=== PATIENT | male | born 1980 | race Caucasian/White ===

== ENCOUNTER 2016-06-01 13:14 | Observation (INO) | payer MEDICARE, OTHER ==
[2016-06-01 13:18] VITALS: BMI 21.5
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
--- NOTE | 2016-06-01 14:02 | PDOC ---
Attending Attestation - Resident Resident Name: Nimisha Pimentel - ED Attending Attestation I have performed the following: I have examined & evaluated the patient, The case was reviewed & discussed with the resident, I agree w/resident's findings & plan, Exceptions are as noted - HPI HPI: 06/01/16 14:18 The patient is a 35-year-old male with a significant past medical history of traumatic brain injury, seizure disorder, who has taken 900 mg of Dilantin a day for the past 4 days, rather than the prescribed dose of 300 mg per day. He is complaining of "dizziness" as well as difficulty walking, weakness and somnolence. He denies palpitation. - Physicial Exam PE: 06/01/16 14:19 Well appearing Mildly tachycardic - Medical Decision Making 06/01/16 14:19 He is well appearing and in no acute distress Will obtain labs and EKG 06/01/16 16:14 Dilantin level is pending Other labs back Will observe Clinical impression: Dilantin toxicity Case discussed in detail with admitting provider including history, physical exam and ancillary studies. Admitting physician has assumed care for the patient, will follow all pending diagnostics and will complete the evaluation and treatment. A portion of this note was documented by scribe services under my direction. I have reviewed the details of the note, within reason, and agree with the documentation with the following case summary and management plan written by me.
[2016-06-01 14:53] LABS: BASOPHIL 0.6 % (0-2.0); MCHC 33.3 g/dl (32.0-35.9); MEAN CELL VOLUME 84.1 fl (80-96); MEAN PLT VOLUME 9.2 fl (7.5-11.1); NEUTROPHILS 69.1 % (42.8-82.8); PLATELET COUNT 206 K/MM3 (134-434); RDW 13.4 % (11.9-15.9); WHITE BLOOD COUNT 7.4 K/mm3 (4.0-10.0)
[2016-06-01 15:21] LABS: ALBUMIN 4.1 g/dl (3.4-5.0); ALK PHOS 92 U/L (45-117); ANION GAP 9 (8-16); BILIRUBIN,TOTAL 0.3 mg/dL (0.2-1.0); CALCIUM 8.9 mg/dL (8.5-10.1); CO2 29 mmol/L (21-32); GLUCOSE,RANDOM 97 mg/dL (74-106); SGOT/AST 15 U/L (15-37); TOT PROT 7.1 g/dl (6.4-8.2)
[2016-06-01 15:33] LABS: SGPT/ALT 23 U/L (12-78)
[2016-06-01 16:03] LABS: URINE MARIJUANA THC NEGATIVE ng/ml (CUTOFF=50)
[2016-06-01] MEDS ORDERED: SODIUM CHLORIDE 1,000 ML IV STA (17:38)
[2016-06-01] MEDS ORDERED: PNEUMOC 13-VAL CONJ-DIP CRM/PF 0.5 ML DISP.SYRIN IM ONE (17:57)
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
[2016-06-01] MEDS ORDERED: PNEUMOCOCCAL 23 VACCINE 0.5 ML VIAL IM ONE (18:15)
--- NOTE | 2016-06-01 18:26 | PN ---
Teaching Attending Note Name of Resident: Sara Robles ATTENDING PHYSICIAN STATEMENT I saw and evaluated the patient. I reviewed the resident's note and discussed the case with the resident. I agree with the resident's findings and plan as documented. SUBJECTIVE: OBJECTIVE: Vital Signs Period Temp Pulse Resp BP Sys/Adam Pulse Ox Last 24 Hr 98 F-98.3 F 90-101 18-20 125-136/74-82 98-100 ASSESSMENT AND PLAN:
[2016-06-01] MEDS ORDERED: ALPRAZolam 2 MG TABLET PO PRN (18:40)
[2016-06-01] MEDS ORDERED: SODIUM CHLORIDE 1,000 ML IV SCH (18:45)
[2016-06-01] MEDS ORDERED: INFLUENZA VACCINE 45 MCG/0.5 ML (MDV 16-17) IM ONE (19:00)
[2016-06-01] MEDS: levETIRAcetam 500 MG TABLET (FP) PO SCH (21:32)
[2016-06-02] MEDS ORDERED: ACETAMINOPHEN 325 MG TABLET (FP) PO ONE (06:21)
[2016-06-02 08:29] LABS: ALBUMIN 3.5 g/dl (3.4-5.0); ANION GAP 8 (8-16); CALCIUM 8.4 mg/dL (8.5-10.1); CO2 28 mmol/L (21-32); GLUCOSE,RANDOM 79 mg/dL (74-106)
[2016-06-02 08:34] LABS: ALK PHOS 72 U/L (45-117); BILIRUBIN,TOTAL 0.4 mg/dL (0.2-1.0); CREATININE 0.8 mg/dL (0.7-1.3); SGOT/AST 10 U/L (15-37); SGPT/ALT 17 U/L (12-78); TOT PROT 5.8 g/dl (6.4-8.2)
[2016-06-02] MEDS: levETIRAcetam 500 MG TABLET (FP) PO SCH (09:07)
[2016-06-02 14:20] VITALS: BP 135/79; PULSE 83; TEMP 98
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
--- NOTE | 2016-06-02 18:31 | EKG ---
Test Reason : Blood Pressure : / mmHG Vent. Rate : 088 BPM Atrial Rate : 088 BPM P-R Int : 126 ms QRS Dur : 096 ms QT Int : 344 ms P-R-T Axes : 028 080 055 degrees QTc Int : 416 ms NORMAL SINUS RHYTHM NORMAL ECG WHEN COMPARED WITH ECG OF 13-JAN-2016 21:30, NO SIGNIFICANT CHANGE WAS FOUND Confirmed by DEBRA KENT MD ([id number]) on 06/02/2016 6:30:59 PM Referred By: Confirmed By:DEBRA KENT MD
== END 2016-06-02 18:31 | disposition home or self-care (01) ==
LOC: JER 13:14 → JERBED 16:23 → J4W 17:20
PROVIDERS: ADMIT Internal Medicine; ATTEND Internal Medicine
DX: T42.0X1A Poisoning by hydantoin derivatives, accidental (unintentional), initial encounter (principal); F43.10 Post-traumatic stress disorder, unspecified; F32.9 Major depressive disorder, single episode, unspecified; G40.909 Epilepsy, unspecified, not intractable, without status epilepticus; G43.909 Migraine, unspecified, not intractable, without status migrainosus; G25.81 Restless legs syndrome; F41.9 Anxiety disorder, unspecified; Z87.820 Personal history of traumatic brain injury; F17.210 Nicotine dependence, cigarettes, uncomplicated; R42 Dizziness and giddiness; Y92.89 Other specified places as the place of occurrence of the external cause
CPT/HCPCS: 36415; 80053; 80185; 80307; 85025; 90732; 93005; 93010; 99285-25; G0009; G0378; Q2037

== ENCOUNTER 2016-08-06 13:04 | Emergency (ER) | payer OTHER ==
[2016-08-06 13:18] VITALS: TEMP 97.5; BMI 21.5
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
[2016-08-06] MEDS ORDERED: levETIRAcetam 500 MG/5 ML INJECTION VIAL IVPB ONE ×2 (14:27→14:41)
[2016-08-06] MEDS ORDERED: HYDROmorphone HCL CARPU-JECT 1 MG/1 ML DISP.SYRIN IVPB ONE (14:27)
[2016-08-06] MEDS ORDERED: PHENYTOIN NA EXTENDED 100 MG CAPSULE (FP) PO ONE (14:29)
[2016-08-06] MEDS ORDERED: HYDROmorphone HCL CARPU-JECT 1 MG/1 ML DISP.SYRIN ONE (14:41)
[2016-08-06] MEDS ORDERED: PHENYTOIN NA EXTENDED 100 MG CAPSULE (FP) ONE (14:41)
[2016-08-06 15:05] LABS: BASOPHIL 0.5 % (0-2.0); EOSINOPHIL 0.7 % (0-4.5); MCH 28.3 pg (25.7-33.7); MCHC 33.9 g/dl (32.0-35.9); MEAN CELL VOLUME 83.5 fl (80-96); MEAN PLT VOLUME 9.3 fl (7.5-11.1); NEUTROPHILS 78.4 % (42.8-82.8); PLATELET COUNT 213 K/MM3 (134-434); RDW 13.6 % (11.9-15.9); WHITE BLOOD COUNT 12.6 K/mm3 (4.0-10.0)
[2016-08-06 15:30] LABS: ALBUMIN 3.9 g/dl (3.4-5.0); ALK PHOS 179 U/L (45-117); ANION GAP 11 (8-16); BILIRUBIN,TOTAL 0.5 mg/dL (0.2-1.0); CO2 25 mmol/L (21-32); COCKROFT - GAULT 110.24; CREATININE 0.9 mg/dL (0.7-1.3); GLUCOSE,RANDOM 100 mg/dL (74-106); SGOT/AST 48 U/L (15-37); SGPT/ALT 117 U/L (12-78); TOT PROT 7.2 g/dl (6.4-8.2)
[2016-08-06 20:19] VITALS: BP 118/54; PULSE 84
== END 2016-08-06 20:40 | disposition home or self-care (01) ==
LOC: JER 13:04
PROC: 3E033NZ Introduction of Analgesics, Hypnotics, Sedatives into Peripheral Vein, Percutaneous Approach (ICD-10-PCS; principal; 2016-08-06)
PROC: 3E033GC Introduction of Other Therapeutic Substance into Peripheral Vein, Percutaneous Approach (ICD-10-PCS; 2016-08-06)
DX: G40.409 Other generalized epilepsy and epileptic syndromes, not intractable, without status epilepticus (principal); R56.1 Post traumatic seizures; Z87.820 Personal history of traumatic brain injury; Z91.14 Patient's other noncompliance with medication regimen; G43.909 Migraine, unspecified, not intractable, without status migrainosus; R74.0 Nonspecific elevation of levels of transaminase and lactic acid dehydrogenase [LDH]
CPT/HCPCS: 36415; 70450-TC; 76705-TC; 80053; 80307; 85025; 99282-25

== ENCOUNTER 2018-01-01 22:20 | Emergency (ER) | payer OTHER ==
--- NOTE | 2018-01-01 22:31 | PDOC ---
History of Present Illness - General History Source: Patient Exam Limitations: No Limitations - History of Present Illness Initial Comments: 01/01/18 23:02 The patient is a 37 year old male with a significant PMH of epileptic seizures s /p traumatic head injury three years ago who presents to the emergency department with increased anxiety s/p questionable seizure this morning. Patient reports he was arguing with his this morning and later today lost consciousness for approximately an hour and a half. Patient states that when he woke up he had urinated on himself. Patient does not know if he seized during this time as the episode was unwitnessed. Patient notes he also had been unable to sleep all day and has had decreased appetite since the incident. Patient reports his last seizure was in October. Patient has been on stable dosing of lyrica, phenytoin, and vimpat for the past year and a half. Patient has taken all his medications today and reports taking them daily, as prescribed. The patient denies chest pain, shortness of breath, headache and dizziness. Denies fever, chills, nausea, vomit, diarrhea and constipation. Denies dysuria, frequency, urgency and hematuria. Allergies: NKA Past surgical history: None reported. Social history: No reported alcohol or cigarette use. Medical marijuana used. 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) - Suicide/Smoking/Psychosocial Hx Smoking History: Current every day smoker Have you smoked in the past 12 months: Yes Number of Cigarettes Smoked Daily: 20 'Breaking Loose' booklet given: 06/01/16 Hx Alcohol Use: No Drug/Substance Use Hx: No Substance Use Type: None Hx Substance Use Treatment: No <Kendrick Benavidez - Last Filed: 01/02/18 01:09> - Past Medical History Allergies/Adverse Reactions: Allergies Allergy/AdvReac Type Severity Reaction Status Date / Time ciprofloxacin [From Cipro] Allergy Verified 08/06/16 13:16 Home Medications: Ambulatory Orders Alprazolam [Xanax] 2 mg PO QID PRN 10/09/15 Methadone [Dolophine -] 10 mg PO QID 10/09/15 Oxycodone HCl 30 tab PO QID PRN 10/09/15 Phenytoin Na Extended [Dilantin -] 300 mg PO DAILY #30 cap 06/02/16 levETIRAcetam [Keppra -] 750 mg PO BID #30 tablet 06/02/16 clonazePAM [KlonoPIN] 1 mg PO PRN PRN 08/06/16 *Physical Exam - Vital Signs Last Vital Signs Temp Pulse Resp BP Pulse Ox 98.3 F 90 14 138/100 100 01/01/18 22:30 01/01/18 22:30 01/01/18 22:30 01/01/18 22:30 01/01/18 22:30 <Dee Dee Rodriguez - Last Filed: 01/01/18 23:01> *DC/Admit/Observation/Transfer <Dee Dee Rodriguez - Last Filed: 01/01/18 23:01> - Discharge Dispostion Decision to Admit order: No <Kendrick Benavidez - Last Filed: 01/02/18 01:09> Diagnosis at time of Disposition: Anxiety - Discharge Dispostion Disposition: HOME Condition at time of disposition: Improved - Patient Instructions Printed Discharge Instructions: DI for Anxiety -- Adult
[2018-01-01] MEDS ORDERED: LORazepam 1 MG TABLET PO ONE (22:55)
[2018-01-01 22:57] VITALS: BP 138/100; PULSE 90; TEMP 98.3; BMI 25.8
[2018-01-01] MEDS ORDERED: LORazepam 0.5 MG TABLET ONE (23:03)
== END 2018-01-02 01:11 | disposition home or self-care (01) ==
LOC: FER 22:20
DX: F41.9 Anxiety disorder, unspecified (principal); G40.909 Epilepsy, unspecified, not intractable, without status epilepticus; F17.210 Nicotine dependence, cigarettes, uncomplicated; I10 Essential (primary) hypertension
CPT/HCPCS: 99283-25

== ENCOUNTER 2018-01-23 13:37 | Emergency (ER) | payer OTHER ==
[2018-01-23 13:44] VITALS: BP 134/82; PULSE 83; TEMP 98.3; BMI 25.7
--- NOTE | 2018-01-23 13:56 | PDOC ---
History of Present Illness - General Chief Complaint: Pain, Acute Stated Complaint: LEFT WRIST PAIN Time Seen by Provider: 01/23/18 13:50 History Source: Patient Exam Limitations: No Limitations - History of Present Illness Initial Comments: 01/23/18 14:17 37y M hx of seizures presents with L wrist mass and L hand pain. Patient states that he's been having discomfort in his left hand and wrist after hitting a wall. Though she noted there was a bump on his wrist 2 days ago the wrist is not really painful there was no redness swelling, was no other injury noted. Denies numbness, tingling, weakness, fever, chills. 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) - Suicide/Smoking/Psychosocial Hx Smoking History: Current every day smoker Have you smoked in the past 12 months: Yes Number of Cigarettes Smoked Daily: 4 Information on smoking cessation initiated: Yes 'Breaking Loose' booklet given: 01/23/18 Hx Alcohol Use: No Drug/Substance Use Hx: Yes Substance Use Type: Marijuana Hx Substance Use Treatment: No Review of Systems - Review of Systems Able to Perform ROS?: Yes Comments:: 01/23/18 14:19 Constitutional - no reported Fever, Chills, Musculskelatal - +L wrist/hand pain no reported back pain, joint swelling skin - no reported bruising, erythema, rash neurological: no reported headache, numbness, focal weakness, tingling, ataxia, hematologic: no reported easy bruising, easy bleeding *Physical Exam - Vital Signs Last Vital Signs Temp Pulse Resp BP Pulse Ox 98.3 F 83 16 134/82 99 01/23/18 13:37 01/23/18 13:37 11/15/18 13:37 01/23/18 13:37 01/23/18 13:37 - Physical Exam Comments: 01/23/18 14:20 GENERAL: The patient is awake, alert, and fully oriented, Nontoxic - in no acute distress. EXTREMITIES: No focalalong the distal forearm, wrist, hand, fingers, no limitations in range of motion throughout the left upper extremity. There is a palpable mass/ cyst on the volar ulnar aspect of his wrist that is nontender, nonfluctuant. Dorsiflexion/extension of his wrist intact cloth covered helmet puller strength normal,. Patient intact SKIN: Warm, Dry, normal turgor, Medical Decision Making - Medical Decision Making 01/23/18 14:21 Suspect ganglion cyst on his wrist will obtain xray o fhis hand/wrist to r/o fx due to prior history of trauma no n/v complaints pt declines pain medications 01/23/18 15:34 xray neg for fx will dc with pmd fu return precautions were dsicussed I discussed the physical exam findings, ancillary test results and final diagnoses with the patient. I answered all of the patient's questions. The patient was satisfied with the care received and felt comfortable with the discharge plan and treatment plan. The patient will call their primary care physician within 24 hours to arrange follow-up and will return to the Emergency Department with any new, persistent or worsening symptoms. *DC/Admit/Observation/Transfer Diagnosis at time of Disposition: Ganglion cyst of volar aspect of left wrist - Discharge Dispostion Disposition: HOME Condition at time of disposition: Stable Decision to Admit order: No - Referrals Referrals: [facility] [Provider Group] Hasmukh Randall MD [Staff Physician] - - Patient Instructions Printed Discharge Instructions: DI Ganglion Cyst Additional Instructions: Return to the emergency department immediately with ANY new, persistent or worsening symptoms. You MUST call and follow up with your doctor in 4-5 days for further evaluation of your symptoms. Results were discussed with you. Please make sure your doctor reviews the results of your emergency evaluation. If you had any xrays during your visit, it was read preliminarily by myself, a Radiologist will review it and if there are any additional findings we will call you. - Post Discharge Activity
== END 2018-01-23 15:38 | disposition home or self-care (01) ==
LOC: FER 13:37
DX: M67.432 Ganglion, left wrist (principal); F17.210 Nicotine dependence, cigarettes, uncomplicated; Z87.442 Personal history of urinary calculi
CPT/HCPCS: 73130-TC-LR-FY; 99281-25

== ENCOUNTER 2018-04-18 14:42 | Emergency (ER) | payer OTHER ==
[2018-04-18] MEDS ORDERED: TETRACAINE 0.5% HCL 0.6ML DROPPER.BOTTLE OS ONE (14:55)
[2018-04-18] MEDS ORDERED: FLUORESCEIN NA 1 EA STRIP ONE (14:56)
[2018-04-18] MEDS ORDERED: TETRACAINE 0.5% OPHTH SOLN 2 ML BOTTLE ONE (14:56)
[2018-04-18] MEDS ORDERED: FLUORESCEIN NA 1 EA STRIP OS ONE (14:57)
[2018-04-18 15:04] VITALS: BP 138/90; PULSE 91; TEMP 98.1; BMI 25.1
--- NOTE | 2018-04-18 15:24 | PDOC ---
History of Present Illness - General Chief Complaint: Injury Stated Complaint: FACE/EYE PAIN Time Seen by Provider: 04/18/18 14:52 - History of Present Illness Initial Comments: 04/18/18 15:30 Mr. Dacosta is a 37 yo male w/ pmh of seizures who presents for evaluation of L eye pain. Patient reports daughter was jumping on the bed last night and accidentally sung a water bottle into his eye while playing. He reports he had 3 minutes of severe eye pain with following splitting headache and photophobia that has lasted until presentation. Also noticed yellow liquid coming from eye today. The patient denies chest pain, shortness of breath, headache and dizziness. Denies fever, chills, nausea, vomit, diarrhea and constipation. Denies dysuria, frequency, urgency and hematuria. 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 No weakness. HEAD, EYES, EARS, NOSE AND THROAT: +L eye pain as described. L blurry eye vision. No ear pain or discharge. No sore throat. CARDIOVASCULAR: No chest pain or shortness of breath RESPIRATORY: No cough, wheezing, or hemoptysis. GASTROINTESTINAL: No nausea, vomiting, diarrhea or constipation. GENITOURINARY: No dysuria, frequency, or change in urination. MUSCULOSKELETAL: No joint or muscle swelling or pain. No neck or back pain. SKIN: No rash NEUROLOGIC: No headache, vertigo, loss of consciousness, or change in strength/ sensation. ENDOCRINE: No increased thirst. No abnormal weight change HEMATOLOGIC/LYMPHATIC: No anemia, easy bleeding, or history of blood clots. ALLERGIC/IMMUNOLOGIC: No hives or skin allergy. *Physical Exam - Vital Signs Last Vital Signs Temp Pulse Resp BP Pulse Ox 98.1 F 91 H 16 138/90 98 04/18/18 14:43 04/18/18 14:43 04/18/18 14:43 04/18/18 14:43 04/18/18 14:43 - Physical Exam Comments: 04/18/18 15:40 GENERAL: Awake, alert, and fully oriented, in no acute distress HEAD: No signs of trauma, normocephalic, atraumatic EYES: +L eye conjunctivitis w/ corneal abbrasion midline noted under flourescein evaluation. PERRLA, EOMI, sclera anicteric ENT: Auricles normal inspection, hearing grossly normal, nares patent, oropharynx clear without exudates. Moist mucosa NECK: Normal ROM, supple, no lymphadenopathy, JVD, or masses LUNGS: No distress, speaks full sentences, clear to auscultation bilaterally HEART: Regular rate and rhythm, normal S1 and S2, no murmurs, rubs or gallops, peripheral pulses normal and equal bilaterally. ABDOMEN: Soft, nontender, normoactive bowel sounds. No guarding, no rebound. No masses EXTREMITIES: Normal inspection, Normal range of motion, no edema. No clubbing or cyanosis. NEUROLOGICAL: Cranial nerves II through XII grossly intact. Normal speech, normal gait, no focal sensorimotor deficits SKIN: Warm, Dry, normal turgor, no rashes or lesions noted. Moderate Sedation - Procedure Monitoring Vital Signs: Procedure Monitoring Vital Signs Temperature 98.1 F 04/18/18 14:43 Pulse Rate 91 H 04/18/18 14:43 Respiratory Rate 16 04/18/18 14:43 Blood Pressure 138/90 04/18/18 14:43 O2 Sat by Pulse Oximetry (%) 98 04/18/18 14:43 ED Treatment Course - Medications Given in the ED: ED Medications Discontinued Medications Generic Name Dose Route Start Last Admin Trade Name Freq PRN Reason Stop Dose Admin Fluorescein Sodium 1 ea 04/18/18 14:57 04/18/18 15:16 Fluorets - OS 04/18/18 14:58 1 ea ONCE ONE Administration Tetracaine HCl 1 drop 04/18/18 14:55 04/18/18 14:58 Tetravisc 0.5% Eye Drops - OS 04/18/18 14:56 1 drop ONCE ONE Administration Medical Decision Making - Medical Decision Making 04/18/18 15:40 Mr. Dacosta is a 37 yo male w/ pmh as described who presents for evaluation of L eye pain. Patient evaluated w/ bauer lamp w/ positive corneal abrasion. Patient exam concerning for decreased L visual acuity; discussed with letter carrier who will evaluate immediately in office. Percocet given for pain control. Patient discharged directly to letter carrier's office. *DC/Admit/Observation/Transfer Diagnosis at time of Disposition: Eye pain Qualifiers: Laterality: left Qualified Code(s): H57.12 - Ocular pain, left eye - Discharge Dispostion Disposition: HOME Condition at time of disposition: Good - Referrals Referrals: Mg Melton MD [Staff Physician] - - Patient Instructions Printed Discharge Instructions: DI for Eye Pain Additional Instructions: You were evaluated today in the ER for your eye pain. We believe you have a corneal abrasion and may have traumatic iritis. Please proceed directly to letter carrier's office as discussed for further evaluation. Return to ER if unable to contact doctor, further worsening of vision, pain, or other concerning symptoms. - Post Discharge Activity
== END 2018-04-18 15:28 | disposition home or self-care (01) ==
LOC: FER 14:42
DX: H57.12 Ocular pain, left eye (principal); G40.909 Epilepsy, unspecified, not intractable, without status epilepticus; F17.210 Nicotine dependence, cigarettes, uncomplicated; Z87.442 Personal history of urinary calculi
CPT/HCPCS: 99282-25

== ENCOUNTER 2018-10-28 16:44 | Emergency (ER) | payer OTHER ==
[2018-10-28] MEDS ORDERED: DIPHTH,PERTUSS(ACELL),TET 0.5 ML DISP.SYRIN IM ONE ×2 (17:05→17:44)
--- NOTE | 2018-10-28 17:08 | PDOC ---
History of Present Illness - General Chief Complaint: Injury Stated Complaint: RT FOOT INJURY Time Seen by Provider: 10/28/18 16:48 History Source: Patient, Family Exam Limitations: No Limitations - History of Present Illness Initial Comments: 10/28/18 16:52 HPI: 38yo male with PMH epilepsy, kidney stones, spinal cord injury, presenting s/p injury to right foot after stepping on glass. At 10AM stepped on glass jar in his kitchen which broke, puncturing his shoe, cutting his right foot. Reports some oozing bleeding which has now stopped, local pain. He denies any numbness or tingling, no motor deficits. Unknown last tetanus date. Doesn't know if there is retained glass - has been ambulating with expected pain levels. All: cipro Meds: per chart PMH: as above PSH: as above SHx: medical marijuana Past History - Travel Traveled outside of the country in the last 30 days: No Close contact w/someone who was outside of country & ill: No - Past Medical History Allergies/Adverse Reactions: Allergies Allergy/AdvReac Type Severity Reaction Status Date / Time ciprofloxacin [From Cipro] Allergy Verified 10/28/18 16:45 Home Medications: Ambulatory Orders Lacosamide [Vimpat -] 100 mg PO BID 01/23/18 Medical Marijuana [Medical Marijuana Oil] 1 dose .ROUTE PRN PRN 01/23/18 Phenytoin Na Extended [Dilantin -] 300 mg PO DAILY 01/23/18 Pregabalin [Lyrica -] 150 mg PO TID 01/23/18 Cephalexin [Keflex] 500 mg PO TID 5 Days #15 capsule 10/28/18 COPD: No Disorders: Yes (KIDNEY STONES) HTN: Yes (not on meds) Kidney Stones: Yes Psychiatric Problems: Yes 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) - Suicide/Smoking/Psychosocial Hx Smoking History: Current every day smoker Have you smoked in the past 12 months: Yes Number of Cigarettes Smoked Daily: 4 'Breaking Loose' booklet given: 06/01/16 Hx Alcohol Use: No Drug/Substance Use Hx: Yes Substance Use Type: Marijuana Hx Substance Use Treatment: No Review of Systems - Review of Systems Able to Perform ROS?: Yes Is the patient limited [place] proficient: No Constitutional: No: Chills, Fever, Night Sweats, Weakness HEENTM: No: Symptoms Reported Respiratory: No: Symptoms reported, Cough, Shortness of Breath, Wheezing Cardiac (ROS): No: Symptoms Reported, Chest Pain, Irregular Heart Rate, Syncope ABD/GI: No: Symptoms Reported, Constipated, Diarrhea, Nausea, Vomiting : No: Symptoms Reported Musculoskeletal: Yes: Back Pain (chronic). No: Symptoms Reported, Muscle Pain Integumentary: No: Symptoms Reported Neurological: No: Headache, Numbness, Seizure, Tingling, Weakness All Other Systems: Reviewed and Negative *Physical Exam - Physical Exam Comments: 10/28/18 17:20 Gen: WDWN, appears stated age, no acute distress HEENT: NCAT, EOMI, trachea midline CV: NSR, well perfused Pulm: speaking full sentences, normal WOB Ext: no clubbing / cyanosis / edema R Foot: 2cm full thickness skin laceration on anterior foot, mild erythema at edges, not warm, not swollen, no obvious debris, no bone visible, no active bleeding MSK: normal ROM of right foot toes Pulses: 2+ DP on right foot Neuro: normal sensation throughout right foot Procedures - Laceration/Wound Repair Right Plantar Foot Wound Length: to 2.5 cm Wound Explored: clean, no foreign body present Wound's Depth, Shape: superficial Irrigated w/ Saline: No Betadine Prep: No Wound Repaired With: Steri-strips, Dermabond Layer Closure: No Sterile Dressing Applied: Yes Splint Applied: No Sling Applied: No Medical Decision Making - Medical Decision Making 10/28/18 17:24 38yo male with PMH epilepsy, kidney stones, spinal cord injury, presenting s/p injury to right foot after stepping on glass. Neurovascularly intact, no obvious signs of infection at this time. -Tetanus Shot -Xray Right Foot Soft Tissues -Steri Strip with Dermabond for closure -5 days Keflex TID Return precautions discussed, patient verbalized understanding. F/u with primary care provider. 10/28/18 17:46 -Xray without foreign body *DC/Admit/Observation/Transfer Diagnosis at time of Disposition: Laceration - Discharge Dispostion Disposition: HOME Condition at time of disposition: Improved Decision to Admit order: No - Prescriptions Prescriptions: Cephalexin [Keflex] 500 mg PO TID 5 Days #15 capsule - Referrals - Patient Instructions Printed Discharge Instructions: DI for Laceration Repair Steri-Strips, DI for Laceration Repair With Dermabond Additional Instructions: You were seen and evaluated in the [facility] Emergency Department, thank you for coming in. Your laceration was repaired with a steristrip and demabond skin glue. Please keep your bandages on and dry for the next 48 hours. After that, please wash with soap and water. Do not scrub on the wound or remove the strips, they will fall off on their own after 7-14 days. You may trim the edges if you desire. Antibiotics have been sent to your pharmacy, please use these as directed. If you notice any discharge, foul smells, increased pain, expanding redness at the site of repair or develop any fevers or chills please return to the emergency department. - Post Discharge Activity
--- NOTE | 2018-10-28 17:12 | PDOC ---
Attending Attestation - Resident Resident Name: Eddie Valle - ED Attending Attestation I have performed the following: I have examined & evaluated the patient, The case was reviewed & discussed with the resident, I agree w/resident's findings & plan - HPI HPI: 10/28/18 17:08 38 y/o male stepped on glass jar earlier today wearing shoes. Bleeding controlled, but still with pain. Not up to date with Tetanus. - Physicial Exam PE: 10/28/18 17:11 VSS Heart: RRR w/o murmur Lungs: CTA b/l, no wheezing EXT right foot with 2 cm non bleeding clean laceration with no glass seen, mild redness, no tenderness, no drainage Neuro: grossly intact, no focal deficits noted - Medical Decision Making 10/28/18 17:48 Area steri stripped and Dermabond, pt tolerated procedure well X-ray right foot: no fracture or foreign body seen Will place on Keflex and follow up as needed Pt in agreement with plan Agree with plan and procedure by Dr. Valle 10/28/18 17:58 Dx; Laceration right foot
[2018-10-28 17:16] VITALS: BP 145/99; PULSE 78; TEMP 98.3; BMI 21.9
== END 2018-10-28 17:58 | disposition home or self-care (01) ==
LOC: FER 16:44
PROC: 0HQMXZZ Repair Right Foot Skin, External Approach (ICD-10-PCS; principal; 2018-10-28)
PROC: 3E0234Z Introduction of Serum, Toxoid and Vaccine into Muscle, Percutaneous Approach (ICD-10-PCS; 2018-10-28)
DX: S91.311A Laceration without foreign body, right foot, initial encounter (principal); W22.8XXA Striking against or struck by other objects, initial encounter; Y93.89 Activity, other specified; Y92.89 Other specified places as the place of occurrence of the external cause; F17.210 Nicotine dependence, cigarettes, uncomplicated; I10 Essential (primary) hypertension; F99 Mental disorder, not otherwise specified
CPT/HCPCS: 73630-TC-RT-FY; 90715; 99282-25

== ENCOUNTER 2020-12-06 13:05 | Emergency (ER) | payer OTHER ==
[2020-12-06 13:31] VITALS: BP 141/81; PULSE 92; TEMP 98.1; BMI 22.9
[2020-12-06] MEDS ORDERED: DIPHTH,PERTUSS(ACELL),TET 0.5 ML DISP.SYRIN IM ONE ×2 (14:41→14:43)
== END 2020-12-06 14:55 | disposition home or self-care (01) ==
LOC: JERFT 13:05
PROC: 0HQGXZZ Repair Left Hand Skin, External Approach (ICD-10-PCS; principal; 2020-12-06)
PROC: 3E0234Z Introduction of Serum, Toxoid and Vaccine into Muscle, Percutaneous Approach (ICD-10-PCS; 2020-12-06)
DX: S61.215A Laceration without foreign body of left ring finger without damage to nail, initial encounter (principal); S61.217A Laceration without foreign body of left little finger without damage to nail, initial encounter; W26.8XXA Contact with other sharp object(s), not elsewhere classified, initial encounter
CPT/HCPCS: 12002-25; 90471; 90715; 99284-25

== ENCOUNTER 2021-06-23 18:45 | Emergency (ER) | payer OTHER ==
[2021-06-23] MEDS ORDERED: ONDANSETRON *ODT* 4 MG TABLET SL ONE (19:31)
[2021-06-23] MEDS ORDERED: SODIUM CHLORIDE 1,000 ML ONE (19:33)
[2021-06-23] MEDS ORDERED: KETOROLAC TROMETHAMINE 30 MG/1 ML VIAL IVPUSH ONE (19:33)
[2021-06-23] MEDS ORDERED: ONDANSETRON 4 MG/2 ML VIAL IVPB ONE (19:33)
[2021-06-23 19:41] VITALS: BP 150/88; PULSE 95; TEMP 98.6; BMI 21.2
[2021-06-23] MEDS ORDERED: KETOROLAC TROMETHAMINE 30 MG/1 ML VIAL ONE (20:07)
[2021-06-23] MEDS ORDERED: ONDANSETRON 4 MG/2 ML VIAL ONE (20:07)
[2021-06-23 20:59] LABS: HEMATOCRIT 45.5 % (35.4-49); HEMOGLOBIN 15.7 G/dL (11.7-16.9); MCH 29.2 pg (25.7-33.7); MCHC 34.6 g/dl (32.0-35.9); MEAN CELL VOLUME 84.4 fl (80-96); MEAN PLT VOLUME 8.7 fl (7.5-11.1); RBC 5.39 10^6/uL (4.00-5.60); RDW 14.5 % (11.9-15.9); WHITE BLOOD COUNT 7.2 10^3/uL (4.0-10.8)
[2021-06-23 21:00] LABS: BASO % 0.5 % (0-2.0); EOS % 2.4 % (0-4.5); MONO % 10.6 % (3.8-10.2); NEUT % 58.5 % (42.8-82.8)
[2021-06-23 21:04] LABS: ALBUMIN 4.3 g/dl (3.4-5.0); BILIRUBIN,TOTAL 0.7 mg/dl (0.2-1); CALCIUM 9.3 mg/dl (8.5-10); TOT PROT 7.4 g/dl (6.4-8.2)
== END 2021-06-24 00:17 | disposition home or self-care (01) ==
LOC: FER 18:45
PROC: 3E033GC Introduction of Other Therapeutic Substance into Peripheral Vein, Percutaneous Approach (ICD-10-PCS; principal; 2021-06-23)
DX: R10.11 Right upper quadrant pain (principal)
CPT/HCPCS: 36415; 74019-TC-FY; 74177-TC; 80053; 83605; 85025; 99285-25; Q9967

== ENCOUNTER 2021-10-06 11:12 | Emergency (ER) | payer OTHER ==
[2021-10-06 11:17] VITALS: BP 165/89; PULSE 78; RESP 18; TEMP 98.7; BMI 22.5
[2021-10-06] MEDS ORDERED: KETOROLAC TROMETHAMINE 30 MG/1 ML VIAL IM ONE (11:24)
[2021-10-06] MEDS ORDERED: KETOROLAC TROMETHAMINE 30 MG/1 ML VIAL ONE (11:25)
== END 2021-10-06 12:26 | disposition home or self-care (01) ==
LOC: FER 11:12
PROC: 3E0233Z Introduction of Anti-inflammatory into Muscle, Percutaneous Approach (ICD-10-PCS; principal; 2021-10-06)
DX: M79.675 Pain in left toe(s) (principal)
CPT/HCPCS: 73610-TC-LT-FY; 73630-TC-LT; 99284-25

== ENCOUNTER 2021-10-22 15:32 | Inpatient (IN) | payer OTHER ==
[2021-10-22 15:37] VITALS: BMI 22.2
[2021-10-22] MEDS ORDERED: morphine CARPU-JECT 4 MG/1 ML DISP.SYRIN IVPUSH ONE (16:43)
[2021-10-22] MEDS ORDERED: SODIUM CHLORIDE 0.9% 500 ML INFUS.BAG IV ONE (16:55)
[2021-10-22] MEDS ORDERED: morphine SULFATE 4 MG/ML VIAL ONE (17:35)
[2021-10-22 17:48] LABS: BASO % 4.6 % (0-2.0); EOS % 2.4 % (0-4.5); HEMATOCRIT 45.8 % (35.4-49); HEMOGLOBIN 15.7 GM/dL (11.7-16.9); MCH 28.6 pg (25.7-33.7); MCHC 34.2 g/dl (32.0-35.9); MEAN CELL VOLUME 83.8 fl (80-96); MEAN PLT VOLUME 8.8 fl (7.5-11.1); MONO % 8.2 % (3.8-10.2); NEUT % 71.8 % (42.8-82.8); PLATELET COUNT 258 10^3/uL (134-434); RBC 5.47 M/mm3 (4.00-5.60); RDW 13.7 % (11.9-15.9)
[2021-10-22 18:08] LABS: ALBUMIN 4.1 g/dl (3.4-5.0); BLOOD UREA NITROGEN 13.6 mg/dL (7-18); CALCIUM 9.2 mg/dL (8.5-10.1)
[2021-10-22 18:11] LABS: CREATININE 1.1 mg/dL (0.55-1.3)
[2021-10-22 18:13] LABS: BILIRUBIN,TOTAL 0.5 mg/dL (0.2-1); TOT PROT 7.6 g/dl (6.4-8.2)
[2021-10-22] MEDS ORDERED: HEPARIN NA (PORCINE) 5,000 UNITS/ML 1ML VIAL IVPUSH PRN ×2 (21:22)
[2021-10-22] MEDS ORDERED: HEPARIN INFUSION - 25,000 UNITS/500 ML INFUS.BAG IVPB SCH (21:30)
[2021-10-22] MEDS ORDERED: ACETAMINOPHEN 1000 MG/100 ML BAG IVPB PRN (22:11)
[2021-10-22] MEDS ORDERED: LACOSAMIDE 50 MG TABLET PO ONE (22:47)
[2021-10-22] MEDS ORDERED: PREGABALIN 50 MG CAPSULE ONE (22:47)
[2021-10-22] MEDS ORDERED: HEPARIN INFUSION - 25,000 UNITS/500 ML INFUS.BAG IVPB ONE (22:48)
[2021-10-22] MEDS ORDERED: PHENYTOIN NA EXTENDED 100 MG CAPSULE (FP) ONE (22:48)
[2021-10-22 22:53] LABS: INR 0.99 (0.83-1.09); PROTHROMBIN TIME (PATIENT) 11.4 SEC (9.7-13.0)
[2021-10-22 22:56] LABS: ACTIVATED PTT 31.2 SECONDS (25.2-36.5)
[2021-10-22] MEDS: LACOSAMIDE 50 MG TABLET PO SCH (22:56)
[2021-10-22] MEDS: PREGABALIN 50 MG CAPSULE PO SCH (22:56)
[2021-10-22] MEDS: PHENYTOIN NA EXTENDED 100 MG CAPSULE (FP) PO SCH (22:56)
[2021-10-23] MEDS ORDERED: MELATONIN 5 MG TABLETS PO PRN (00:59)
[2021-10-23 04:39] VITALS: TEMP 97.9
[2021-10-23] MEDS ORDERED: PREGABALIN 50 MG CAPSULE ONE (06:15)
[2021-10-23 06:16] LABS: HEMATOCRIT 45.5 % (35.4-49); HEMOGLOBIN 15.6 GM/dL (11.7-16.9); MCH 28.6 pg (25.7-33.7); MCHC 34.3 g/dl (32.0-35.9); MEAN CELL VOLUME 83.4 fl (80-96); MEAN PLT VOLUME 9.2 fl (7.5-11.1); PLATELET COUNT 238 10^3/uL (134-434); RBC 5.46 M/mm3 (4.00-5.60); RDW 14.1 % (11.9-15.9)
[2021-10-23] MEDS ORDERED: PREGABALIN 25 MG CAPSULE ONE ×2 (06:16→13:46)
[2021-10-23] MEDS: PREGABALIN 50 MG CAPSULE PO SCH ×2 (06:18→13:51)
[2021-10-23 06:39] LABS: CALCIUM 8.7 mg/dL (8.5-10.1)
[2021-10-23 06:40] LABS: ALBUMIN 3.7 g/dl (3.4-5.0); BLOOD UREA NITROGEN 11.3 mg/dL (7-18); MAGNESIUM 2.4 mg/dL (1.8-2.4)
[2021-10-23 06:43] LABS: CREATININE 0.9 mg/dL (0.55-1.3); PHOSPHOROUS 3.8 mg/dL (2.5-4.9)
[2021-10-23 06:44] LABS: BILIRUBIN,TOTAL 0.7 mg/dL (0.2-1)
[2021-10-23] MEDS ORDERED: HEPARIN NA (PORCINE) 5,000 UNITS/ML 1ML VIAL ONE (07:02)
[2021-10-23] MEDS ORDERED: ALPRAZolam 1 MG TABLET PO PRN (07:15)
[2021-10-23] MEDS ORDERED: LACOSAMIDE 50 MG TABLET PO ONE (08:56)
[2021-10-23] MEDS ORDERED: ASPIRIN 81 MG CHEWABLE TABLETS ONE (08:57)
[2021-10-23] MEDS ORDERED: PHENYTOIN NA EXTENDED 100 MG CAPSULE (FP) ONE (08:57)
[2021-10-23 09:22] LABS: COCAINE, UR NEGATIVE (NEGATIVE); METHADONE, UR NEGATIVE (NEGATIVE); URINE BARBITURATES NEGATIVE (NEGATIVE)
[2021-10-23 09:23] LABS: PHENCYCLIDINE,URINE NEGATIVE (NEGATIVE); URINE BENZODIAZEPINES NEGATIVE (NEGATIVE)
[2021-10-23 09:24] LABS: OPIATES, URI POSITIVE (NEGATIVE); URINE AMPHETAMINES POSITIVE (NEGATIVE)
[2021-10-23] MEDS ORDERED: ASPIRIN 81 MG CHEWABLE TABLETS PO SCH (10:00)
[2021-10-23] MEDS: PHENYTOIN NA EXTENDED 100 MG CAPSULE (FP) PO SCH (10:46)
[2021-10-23] MEDS: LACOSAMIDE 50 MG TABLET PO SCH (10:46)
[2021-10-23] MEDS ORDERED: PREGABALIN 100 MG CAPSULE ONE (13:46)
[2021-10-23 17:07] VITALS: BP 140/87; PULSE 65; RESP 16
== END 2021-10-23 17:05 | disposition home or self-care (01) | DRG 301 ==
LOC: JER 15:32 → JERBED 21:33
PROVIDERS: ADMIT Internal Medicine; ATTEND Nurse Practitioner Acute Care
DX: I70.202 Unspecified atherosclerosis of native arteries of extremities, left leg (principal); M79.675 Pain in left toe(s); G40.909 Epilepsy, unspecified, not intractable, without status epilepticus; I10 Essential (primary) hypertension; F17.210 Nicotine dependence, cigarettes, uncomplicated; M51.27 Other intervertebral disc displacement, lumbosacral region
CPT/HCPCS: 36415; 72148-TC; 73706-TC-RT; 80053; 80307; 83735; 84100; 85025; 85027; 85610; 85730; 86850; 86900; 86901; 93306-TC; 93971-TC; 99285-25; C9803-CS; J1644; Q9967; U0003; U0005